=== PATIENT | female | born 1995 | race African-American/Black ===

== ENCOUNTER → 2017-07-04 | Outpatient (CLI) | payer BC ==
--- NOTE | 2017-07-04 12:29 | RADIOLOGY REPORT (SQ) ---
EXAM DESCRIPTION: KUB COMPLETED DATE/TIME: 07/04/2017 11:32 am REASON FOR STUDY: SLOW TRANSIT CONSTIPATION,RIGHT UPPER QUADRANT PAIN K59.01 SLOW TRANSIT CONSTIPAT ION R10.11 RIGHT UPPER QUADRANT PAIN COMPARISON: None. NUMBER OF VIEWS: One view. TECHNIQUE: Supine radiographic image of the abdomen acquired. LIMITATIONS: None. FINDINGS: BOWEL GAS PATTERN: Normal bowel gas pattern. No dilated loops. CONSTIPATION: Moderate. CALCIFICATIONS: No suspicious calcifications. SOFT TISSUES: No gross mass or suggestion of organomegaly. HARDWARE: None in the abdomen. BONES: No acute fracture. No worrisome bone lesions. OTHER: No other significant finding. IMPRESSION: NO RADIOGRAPHIC EVIDENCE FOR ACUTE ABDOMINAL DISEASE. Moderate constipation proximal 2/3 of the colon. TECHNICAL DOCUMENTATION: JOB ID: [id number] [employer]- All Rights Reserved
== END ==
LOC: OD 11:14
PROVIDERS: ATTEND Physician Assistant Surgical
DX: K59.01 Slow transit constipation (principal); R10.11 Right upper quadrant pain
CPT/HCPCS: 74018

== ENCOUNTER → 2017-07-28 | Outpatient (CLI) | payer BC ==
--- NOTE | 2017-07-28 08:27 | WOMENS IMAGING REPORT ---
EXAM DESCRIPTION: U/S ABDOMEN LIMITED COMPLETED DATE/TIME: 07/28/2017 7:44 am REASON FOR STUDY: ABNORMAL RESULTS OF THE LIVER FUNCTION STUDIES;R94.5 R94.5 ABNORMAL RESULTS OF LI DAVON FUNCTION STUDIES COMPARISON: None. TECHNIQUE: Dynamic and static grayscale images acquired of the abdomen and recorded on PACS. Additio nal selected color Doppler and spectral images recorded. LIMITATIONS: None. FINDINGS: PANCREAS: No masses. Visualized pancreatic duct normal caliber. LIVER: No masses. Echotexture normal. LIVER VASCULATURE: Normal directional flow of the main portal vein and hepatic veins. GALLBLADDER: No stones. Normal wall thickness. No pericholecystic fluid. ULTRASOUND-DETECTED ENRIQUEZ'S SIGN: Negative. INTRAHEPATIC DUCTS AND COMMON DUCT: CBD and intrahepatic ducts normal caliber. No filling defects. INFERIOR VENA CAVA: Poorly visualized. AORTA: Poorly visualized. RIGHT KIDNEY: Normal size. Normal echogenicity. No solid or suspicious masses. No hydronephrosis. No calcifications. PERITONEAL AND RIGHT PLEURAL SPACE: No ascites or effusions. OTHER: No other significant findings. IMPRESSION: NORMAL RIGHT UPPER QUADRANT ULTRASOUND. THE ABDOMINAL AORTA AND INFERIOR VENA CAVA ARE POORLY VISUALIZED DUE TO OVERLYING BOWEL GAS. TECHNICAL DOCUMENTATION: JOB ID: [id number] [employer]- All Rights Reserved
== END ==
LOC: WI 07:09
PROVIDERS: ATTEND Internal Medicine Gastroenterology
DX: R94.5 Abnormal results of liver function studies (principal)
CPT/HCPCS: 76705

== ENCOUNTER → 2018-02-14 | Outpatient (CLI) | payer BC | LOC: LAB 14:41 | PROVIDERS: ATTEND Student in an Organized Health Care Education/Training Program | DX: N92.6 Irregular menstruation, unspecified (principal); Z11.3 Encounter for screening for infections with a predominantly sexual mode of transmission | CPT/HCPCS: 36415; 84146 ==

== ENCOUNTER → 2018-12-31 | Outpatient (CLI) | payer BC | LOC: OD 13:24 | PROVIDERS: ATTEND Otolaryngology | DX: J30.9 Allergic rhinitis, unspecified (principal) | CPT/HCPCS: 36415; 82785; 86003 ==